=== PATIENT | female | born 1945 | race Caucasian/White ===

== ENCOUNTER 2017-12-17 01:30 | Outpatient (CLI) | payer MEDICARE, SELFPAY ==
--- NOTE | 2017-12-17 10:50 | DI.REPORT_ITS ---
SYMPTOMS/DIAGNOSIS: SCREENING, Z12.31 MAMMOGRAMS: Mammograms were interpreted according to the usual protocol including computer analysis with CAD system, tomosynthesis and C view imaging. The breast tissue is of moderate radiodensity. There is no evidence of a mass. There are no suspicious calcifications and there has been no significant interval change when compared with prior images. SUMMARY: No evidence of malignancy, category 1. Yearly screening mammography is recommended. Breast density category B. SA ASSESSMENT OF FINDINGS: Negative. Category 1. Patient will receive a letter notifying them of these results. BI-RADS category B. There are scattered areas of fibroglandular density.
== END 2017-12-17 01:31 ==
PROVIDERS: PCP Family Medicine; Visit Provider Family Medicine
DX: Z12.31 Encounter for screening mammogram for malignant neoplasm of breast (principal)
CPT/HCPCS: 77063; 77067

== ENCOUNTER 2018-12-28 00:13 | Outpatient (CLI) | payer MEDICARE, SELFPAY ==
--- NOTE | 2018-12-28 13:16 | DI.MAMMO_ITS ---
SYMPTOM/DIAGNOSIS: SCREENING, Z12.39 MAMMOGRAMS: Mammograms were interpreted according to the usual protocol including computer analysis with CAD system, tomosynthesis and C view imaging. Comparison is made with exams from [id number]. The breasts are composed of fatty density tissue, breast density, category A. No suspicious masses or suspiciious microcalcifications are seen. There has been no significant change. IMPRESSION: Category 1. Negative mammogram. Yearly screening mammography is recommended. [facility] ASSESSMENT OF FINDINGS: Negative. Category 1. Patient will receive a letter notifying them of these results. BI-RAD category A. The breasts are almost entirely fatty.
== END 2018-12-28 00:33 ==
PROVIDERS: PCP Family Medicine; Visit Provider Family Medicine
DX: Z12.31 Encounter for screening mammogram for malignant neoplasm of breast (principal)
CPT/HCPCS: 77063; 77067

== ENCOUNTER 2019-09-08 08:35 | Emergency (ER) | payer MEDICARE, SELFPAY ==
[2019-09-08] VITALS (14 sets, daily range): BP systolic 132–145; BP diastolic 49–75; PULSE 55–67; RESP 10–18; TEMP 36.3; O2SAT 96–100
--- NOTE | 2019-09-08 08:45 | DI.CT_ITS ---
EXAM: CT HEAD WO CLINICAL HISTORY: dizzy, r/o bleed/stroke. TECHNIQUE: Imaging Protocol: Axial computed tomography images with coronal and sagittal reformatted images were created and reviewed COMPARISON: No exams were available for comparison FINDINGS: Ventricles and Extra axial spaces: Normal in size and morphology for the patient's age. Hemorrhage: None. Cerebral parenchyma: There are areas of decreased attenuation in the white matter most consistent wit h small vessel ischemic disease. No evidence of an acute territorial infarct. Midline shift: None. Brainstem/Cerebellum: Normal. Calvarium: Normal. Visualized Paranasal sinuses/Mastoids: Clear. Soft Tissues: Unremarkable. IMPRESSION: No acute intracranial process. These findings were discussed with the emergency department on the date of the examination. RADIATION DOSE DELIVERED: 615.62mGy.cm Total DLP DATA REPOSITORY: All CT scans at this facility are submitted to the National Radiology Data Registry (NRDR) Dose Index Registry (DIR) with the [employer] (ACR). RADIATION OPTIMIZATION: All CT scans at this facility use at least one of these dose optimization te chniques: automated exposure control; mA and/or kV adjustment per patient size (includes targeted exa ms where dose is matched to clinical indication); or iterative reconstruction.
[2019-09-08] MEDS: Ondansetron O.D.T. 4 MG TABEF (08:54)
[2019-09-08] MEDS: Meclizine 25 MG TAB (08:54)
[2019-09-08] MEDS: Normal Saline 1,000 ML 1000 ML IV (08:54)
--- NOTE | 2019-09-08 09:01 | ED.GENADUL_ITS ---
Discharge Plan Disposition Patient Disposition: HOME Condition: Good Discharge Details Chief Complaint: Dizzy/Sync Clinical Impression: Peripheral vertigo Primary Care Provider: Celia Morin ED Provider: Cristian Nuno Home Meds and New Rx's Prescriptions: New ondansetron HCl [Zofran] 4 mg tablet 4 mg PO Q8H Qty: 8 RF: 0 meclizine 25 mg tablet 25 mg PO TID Qty: 8 RF: 0 Continued rmuzhhys-djtm-jgx5-C-fátima-bosw 1 EACH tablet 1 ea PO DAILY RF: 0 naproxen sodium [Aleve] 220 MG capsule 220 mg PO DAILY RF: 0 Discharge Instructions Instructions: Benign Paroxysmal Positional Vertigo (ED) Additional Instructions: At this time you have what is called peripheral vertigo. Please make sure you are drinking plenty of non-caffeinated beverages, staying well-hydrated, and take the meclizine and Zofran as needed. The meclizine is for dizziness, and the Zofran is for nausea. Your symptoms will likely improve over the next 48 to 72 hours, however if they worsen please make sure to return. If you notice any worsening of your symptoms, or any new symptoms such as vomiting, diarrhea, fever, chills, shortness of breath, chest pain, numbness, weakness, or fainting , please return immediately to the emergency department for reevaluation. Please follow up with your primary care provider as soon as possible for reassessment and reevaluation. As always, it was a pleasure participating in your medical care today. Referrals: Celia Morin [place], [place] [Primary Care Provider] - Medical Decision Making 74-year-old female with past medical history of hysterectomy, no other significant past medical history presents today for evaluation of sudden onset dizziness. Patient states that at 2 AM she woke up, when she got out of bed she noticed that the room was spinning, had a hard time physically orienting herself due to the dizziness. She denies any associated ear ringing, vision changes, chest pain, shortness of breath, falls, trauma, numbness tingling or focal wea kness. Because of the dizziness she has been notably nauseous all night and all morning, multiple episodes of mild vomiting. She denies hematemesis. No history of stroke, PE, or AK. She denies any chest pain, chest tightness, chest heaviness or shortness of breath. She denies having symptoms like this in the past. No other complaints at this time. Physical exam demonstrates unilateral left-sided horizontal fatigable nystagmus, test of skew is only positive for horizontal correction but no vertical correction. Head impulse test is positive on the left. Signs and symptoms appear clinically consistent with peripheral vertigo. Inconsistent with a central event. Because of the patient's age though we will get a CT scan of the head, EKG, rehydrate, give Zofran and meclizine monitor closely and reassess. I suspect if her symptoms resolved with medication and as her symptoms are clinically consistent with a peripheral etiology she can likely be discharged home she feels better. 10:[address] scan has returned, and per Dr. Johnson negative for acute process stroke or bleed. EKG and laboratory work-up are all unremarkable. Patient is feeling much better. Bethel-Hallpike was positive for the left, Parmjit maneuver was performed and did result in some improvement, meclizine certainly helped her symptoms as well. She is able to ambulate well, is feeling good and ready to go home. Patient will be discharged with meclizine and Zofran as needed. She is tolerating p.o. well. With her improvement, and negative work-up for signs and symptoms are clinically consistent with peripheral vertigo. Patient will be discharged. I did call her and discussed the case with him. I have extensively reviewed the treatment plan and discharge instructions with the patient and their family. I have addressed all patient concerns at this time. The patient and family was made aware of what symptoms to monitor for that would warrant a return to the emergency department. Discussed the plan with the patient and family, they demonstrate verbal understanding and agreement with our assessment and plan at this time. EKG 8: 48 Rate 58, sinus bradycardia, intervals normal, no significant ST elevations or depressions, there is an inverted T wave in V1, no evidence of STEMI. FINDINGS: Ventricles and Extra axial spaces: Normal in size and morphology for the patient's age. Hemorrhage: None. Cerebral parenchyma: There are areas of decreased attenuation in the white matter most consistent with small vessel ischemic disease. No evidence of an acute territorial infarct. Midline shift: None. Brainstem/Cerebellum: Normal. Calvarium: Normal. Visualized Paranasal sinuses/Mastoids: Clear. Soft Tissues: Unremarkable. IMPRESSION: No acute intracranial process. These findings were discussed with the emergency department on the date of the examination. HPI General Date/Time Provider Initiated Documentation: 09/08/19 08:36 . HPI Narrative: 74-year-old female with past medical history of hysterectomy, no other significant past medical history presents today for evaluation of sudden onset dizziness. Patient states that at 2 AM she woke up, when she got out of bed she noticed that the room was spinning, had a hard time physically orienting herself due to the dizziness. She denies any associated ear ringing, vision changes, chest pain, shortness of breath, falls, trauma, numbness tingling or focal weakness. Because of the dizziness she has been notably nauseous all night and all morning, multiple episodes of mild vomiting. She denies hematemesis. No history of stroke, PE, or AK. She denies any chest pain, chest tightness, chest heaviness or shortness of breath. She denies having symptoms like this in the past. No other complaints at this time. Related Data Home Medications Medication Instructions Recorded Confirmed dzoetdgm-tpti-bwp7-C-fátima-bosw 1 ea PO DAILY 03/15/13 09/08/19 naproxen sodium [Aleve] 220 mg PO DAILY 09/05/14 09/08/19 meclizine 25 mg PO TID #8 tab 09/08/19 ondansetron HCl [Zofran] 4 mg PO Q8H #8 tab 09/08/19 Previous Rx's Medication Instructions Recorded meclizine 25 mg PO TID #8 tab 09/08/19 ondansetron HCl [Zofran] 4 mg PO Q8H #8 tab 09/08/19 Allergies Allergy/AdvReac Type Severity Reaction Status Date / Time Sulfa (Sulfonamide Allergy Unverified 09/08/19 08:55 Antibiotics) General Stated Complaint: Dizzy/Sync IKE: 3 Review of Systems All systems reviewed & are unremarkable except as noted in HPI and below PFSH Surgical History (Updated 02/03/18 @ 14:34 by [employer] [place]) Abdominal hysterectomy (~1994) Gr II uterine Ca - Dr Willson Arthroplasty of knee (~1999) Cholecystectomy (~2009) Oophrectomy, Both with hyst Family History (Updated 12/08/18 @ 14:13 by Isael Robles) Mother , 88 Heart disease Stroke Father , 78 Lung cancer Sister , 73 Bladder cancer Brother Diabetes Maternal Grandfather No problems noted. Paternal Grandfather No problems noted. Maternal Grandmother No problems noted. Paternal Grandmother No problems noted. Son No problems noted. Son No problems noted. Social History (Updated 12/08/18 @ 14:11 by Isael Robles) Smoking/Tobacco Use Status: Never Alcohol Intake: never Drug use: Never Substance use type: does not use Caregiver/Support person: No Household members: spouse Housing: house Communication Needs: None Do you need help understanding health information?: Rarely Pets and animals: No Sexually active: No Current gender identity: decline to answer What is your relationship status?: How often do you talk on the phone with friends or family?: decline to answer How often do you get together with friends or relatives?: decline to answer How often do you attend denominational or yazidi services?: decline to answer Do you belong to any clubs or organized social groups?: decline to answer Panel score (0-1 are the most socially isolated patients): 1 What type of physical activity do you participate in: walking Duration: 45-60 minutes/day Frequency: daily Sanna/Hinduism: Spiritism Special sanna needs: No Seatbelt use: always Helmet use: No Drive intox or ride w/intox caterpillar driver: No Do you feel safe at home: Yes Do you feel safe in your relationship?: Yes Exam Narrative Exam Narrative: 1.Const: Well-nourished, Well-developed, appearing stated age 2.Eyes: PERRL, no conjunctival injection, and symmetrical lids. Please see neuro. 3.ENT: Atraumatic external nose and ears. Notably dry MM. Neck: Symmetric, trac hea midline, No thyromegaly. 4.CVS: +S1/S2, No murmurs or gallops. Peripheral pulses 2+ and equal in all extremities. Brisk capillary refill in all extremities. 5.RESP: Unlabored respiratory effort. Clear to auscultation bilaterally. No wheezes rales or rhonchi 6.GI: Soft, Nontender/Nondistended, No hepatosplenomegaly. No guarding or rebound. No pain at McBurney's point, negative Grant sign 7.MSK: Normocephalic/Atraumatic, Extremities w/o deformity or ttp No cyanosis or clubbing, Normal movement of all extremities 8.Skin: Warm, Dry. No rashes or lesions. 9.Neuro: health and physical education teacher II-XII grossly intact. Sensation grossly intact, no focal neurologic deficits. All 6 cardinal planes of vision are fully intact. No evidence of rotatory or vertical nystagmus, patient does have notable left-sided unidirectional fatigable horizontal nystagmus. The patient demonstrated a normal bptlon-dlpj-wrxjhb, good dexterity. There was no evidence of dysdiadochokinesia. Patient was able to ambulate without difficulty. There was no wide-based gait. Romberg testing was normal. Bcge-na-ulkc testing was normal. Sensation was intact bilaterally as well as muscle strength bilaterally for all extremities. Patient was able to verbalize butter cup with no slurring, or miss pronunciation. Cerebellar function testing is normal. The patient demonstrates a normal hints exam with no findings concerning for a central event. Head impulse test is notably positive with left-sided movement. Normal test of skew however she does have mild horizontal correction but no vertical correction. No suggestion of a central cerebellar event. 10.Psych: (AAO) x3. Appropriate mood and affect Course Vital Signs Vital signs: Vital Signs Temperature 36.3 C L 09/08/19 08:42 Pulse 66 09/08/19 08:42 Respiratory Rate 16 09/08/19 08:42 Blood Pressure 136/66 09/08/19 08:42 Pulse Oximetry 97 09/08/19 08:42 Temperature 36.3 C L 09/08/19 08:42 Temperature Source Tympanic 09/08/19 08:42 Pulse 66 09/08/19 08:42 Respiratory Rate 16 09/08/19 08:42 Respiratory Effort Non-Labored 09/08/19 08:54 Blood Pressure 136/66 09/08/19 08:42 Blood Pressure Position Sitting 09/08/19 08:42 Pulse Oximetry 97 09/08/19 08:42 Oxygen Delivery Method Room Air 09/08/19 08:42 Oxygen Flow Rate 0 09/08/19 08:42 Pain Level 0 09/08/19 08:42
[2019-09-08 09:13] LABS: Abs Immature Grans 0.01 k/cumm (0.0-0.09); Absolute Basophil Count 0.01 k/cumm (0.0-0.2); Absolute Eosinophil Count 0.04 k/cumm (0.0-0.7); Absolute Monocyte Count 0.31 k/cumm (0.11-0.7); Absolute Neutrophil Count 4.04 k/cumm (1.2-6.7); Basophils % 0.2; Eosinophils % 0.7; HCT 41.7 % (36.0-46.0); Immature Grans % 0.2 %; Lymphocytes % 18.5; Mean Corp. HGB Concentration 33.6 g/dL (32.0-36.0); Mean Corpuscular Hemoglobin 30.8 pg (27.0-33.0); Mean Corpuscular Volume 91.6 fL (80-95); Mean Platelet Volume 10.5 fL (8.0-11.0); Monocytes % 5.7; Neutrophils % 74.7; Platelet Count 200 x1000/uL (130-400); RBC 4.55 m/cumm (4.00-5.20); RBC Distribution Width 12.8 % (11.7-14.6); White Blood Cell Count 5.41 k/cumm (4.4-10.8)
[2019-09-08 09:25] LABS: PTT Activated 22.5 sec (21.0-31.4); Prothrombin Time 9.9 sec (9.3-11.0)
[2019-09-08 09:33] LABS: ALT 25 U/L (14-59); AST 17 U/L (15-37); Albumin 3.8 g/dL (3.4-5.0); Alkaline Phosphatase 92 U/L (46-116); Anion Gap 6.5 mmol/L (3-11); BUN 18 mg/dL (7-18); Bilirubin, Total 0.7 mg/dL (0.2-1.0); CO2 28.5 mmol/L (21.0-32.0); CREATININE 1.09 mg/dL (0.55-1.02); Calcium 9.3 mg/dL (8.5-10.1); Chloride 105 mmol/L (98-107); Estimated GFR 48.93 (mL/min/1.73m2); Glucose 108 mg/dL (74-106); Lipase 66 U/L (73-393); Potassium 4.1 mmol/L (3.5-5.1); Sodium 140 mmol/L (136-145); Total Protein 7.4 g/dL (6.4-8.2); Troponin I < 0.05 ng/Ml (<0.06)
[2019-09-08] MEDS: Ondansetron O.D.T. 4 MG TABEF, 3 TABS/BTL PO (11:11)
[2019-09-08] MEDS: Meclizine 25 MG TAB PO (11:11)
== END 2019-09-08 10:55 | disposition home or self-care (01) ==
PROVIDERS: Emergency Provider Student in an Organized Health Care Education/Training Program; PCP Family Medicine
DX: H81.392 Other peripheral vertigo, left ear (principal); R11.2 Nausea with vomiting, unspecified
CPT/HCPCS: 36415; 80053; 83690; 93005; 96360; 96361; 99285; 70450; 84484; 85025; 85610; 85730; 93010; 99284

== ENCOUNTER 2020-01-03 00:39 | Outpatient (CLI) | payer MEDICARE, SELFPAY ==
--- NOTE | 2020-01-03 13:15 | DI.MAMMO_ITS ---
EXAM: MG MAMMO SCREENING CLINICAL HISTORY: screening,Z12.39 TECHNIQUE: Mammograms were interpreted according to the usual protocol including computer analysis w [employer] CAD system, tomosynthesis and C-view imaging. COMPARISON: FINDINGS: The breasts are of moderate density with fairly symmetrical distribution of fibroglandular tissue. N o dominant mass or clumped microcalcification is identified in either breast. The current examinatio n is compared with previous examinations including December 2018 and there has been no gross interva l change in appearance comparison with previous studies. IMPRESSION: No specific evidence of malignancy at this time. Routine screening examinations are suggested at yea rly intervals according to the ACS ACR guidelines. BI-RADS Category 1 - Negative Breast Density - Category B - Scattered areas of fibroglandular density
== END 2020-01-03 00:59 ==
PROVIDERS: PCP Family Medicine; Visit Provider Family Medicine
DX: Z12.31 Encounter for screening mammogram for malignant neoplasm of breast (principal)
CPT/HCPCS: 77063; 77067

== ENCOUNTER 2021-04-01 14:10 | Outpatient (CLI) | payer MEDICARE, SELFPAY ==
--- NOTE | 2021-04-01 13:45 | DI.RAD_ITS ---
Exam(s) XR KNEE RT 3V AP,LAT,DUSTIN EXAM: XR KNEE RT 3V AP,LAT,DUSTIN CLINICAL HISTORY: eval R knee pain/OA. TECHNIQUE: 2D digital imaging was performed. COMPARISON: CR RIGHT KNEE 3 VIEWS from 12/06/2012 FINDINGS: Again noted is cdjt-cr-mnlm narrowing of the lateral compartment of the right knee. Also severe adva nced degenerative changes in the patellofemoral compartment which have further progressed. Relative preservation of height of the medial compartment noted. There is an element of valgus deformity evid ent. IMPRESSION: DATA REPOSITORY: RADIATION DOSE DELIVERED:
== END 2021-04-01 14:11 | disposition home or self-care (01) ==
LOC: DIORS 14:11
PROVIDERS: PCP Family Medicine; Referring Provider Family Medicine; Visit Provider Student in an Organized Health Care Education/Training Program
DX: M17.11 Unilateral primary osteoarthritis, right knee (principal)
CPT/HCPCS: 20610; 73562; 99213; J1040

== ENCOUNTER 2021-07-08 15:19 | Outpatient (CLI) | payer MEDICARE, SELFPAY ==
--- NOTE | 2021-07-08 13:45 | DI.RAD_ITS ---
Exam(s) XR STANDING ALIGNMENT EXAM: XR STANDING ALIGNMENT CLINICAL HISTORY: TKR planning. TECHNIQUE: 2D digital imaging was performed. COMPARISON: CR XR KNEE RT 3V AP,LAT,DUSTIN from 04/01/2021 FINDINGS: Standing study reveals significant pelvic tilting towards the right. There is right-sided valgus def ormity related to hwbt-ry-ivkt narrowing of the lateral compartment of the right knee. Medial compar tment the right knee exhibits normal height. There is only minimal narrowing of the medial compartme nt of the opposite-left knee. There is mild relatively symmetrical narrowing of the hip joints. The superior aspect of the left fe moral head is approximately 2 cm above the superior aspect of the right hip joint. Similar findings at the level of the knees. Sacroiliac joints appear unremarkable. Ankles unremarkable. No signific ant osseous lesions. IMPRESSION: Advanced narrowing of the lateral compartment of the right knee. Valgus deformity. Pelvic tilting as described above DATA REPOSITORY: RADIATION DOSE DELIVERED:
== END 2021-07-08 15:20 | disposition home or self-care (01) ==
LOC: DIORS 15:20
PROVIDERS: PCP Family Medicine; Referring Provider Family Medicine; Visit Provider Student in an Organized Health Care Education/Training Program
DX: M21.061 Valgus deformity, not elsewhere classified, right knee (principal); M17.11 Unilateral primary osteoarthritis, right knee; I49.8 Other specified cardiac arrhythmias
CPT/HCPCS: 77073

== ENCOUNTER 2021-07-29 02:08 | Outpatient (CLI) | payer MEDICARE, SELFPAY | END 2021-07-29 02:09 | disposition home or self-care (01) | LOC: LBO 02:08 | PROVIDERS: PCP Family Medicine; Visit Provider Student in an Organized Health Care Education/Training Program ==

== ENCOUNTER 2021-07-29 02:39 | Outpatient (CLI) | payer MEDICARE, SELFPAY ==
[2021-07-29 09:40] LABS: HCT 41.1 % (36.0-46.0); HGB 13.4 g/dL (11.2-15.7); MCH 30.8 pg (27.0-33.0); MCHC 32.6 % (32.0-36.0); MCV 94.5 fL (80-95); MPV 10.1 fL (8.0-11.0); Platelet Count 187 10^3/uL (130-400); RBC 4.35 10^6/uL (3.93-5.22); RDW 12.2 % (11.7-14.6); RDW-SD 42.6 fL; WBC 4.96 10^3/uL (4.4-10.8)
[2021-07-29 10:27] LABS: Anion Gap 9.8 mmol/L (3-11); BUN 24 mg/dL (7-18); CO2 27.2 mmol/L (21.0-32.0); Calcium 9.5 mg/dL (8.5-10.1); Chloride 106 mmol/L (98-107); Estimated GFR 53.76 (mL/min/1.73m2); Glucose 74 mg/dL (74-106); Potassium 4.3 mmol/L (3.5-5.1); Sodium 143 mmol/L (136-145)
[2021-07-29 12:09] LABS: Source Nasal/Nares
[2021-07-29 14:45] LABS: COVID-19 PCR Negative (Negative)
== END 2021-07-29 02:40 | disposition home or self-care (01) ==
LOC: LBO 02:39
PROVIDERS: PCP Family Medicine; Visit Provider Student in an Organized Health Care Education/Training Program
DX: M25.561 Pain in right knee (principal); M17.11 Unilateral primary osteoarthritis, right knee; Z20.822 Contact with and (suspected) exposure to COVID-19; Z01.818 Encounter for other preprocedural examination; Z01.812 Encounter for preprocedural laboratory examination
CPT/HCPCS: 36415; 80048; 85027; 87635; U0005; 93005

== ENCOUNTER 2021-07-29 03:00 | Outpatient (CLI) | payer MEDICARE, SELFPAY ==
--- NOTE | 2021-07-29 10:30 | RT.EKG_ITS ---
APPROVED REPORT Exam: Resting ECG Reason for Exam: Regularly irregular rhythm noted. DOS 07/30 Patient Location: O HR:76 bpm ECG Measurements Heart Rate 76 AXIS OH 150 P 29 QRSd 73 QRS -38 QT 371 T 42 QTc 417 Conclusion Sinus rhythm...normal P axis, V-rate 60- 99 Ventricular premature complex...V complex w/ short R-R interval Left axis
== END 2021-07-29 03:01 | disposition home or self-care (01) ==
LOC: RT 03:00
PROVIDERS: PCP Family Medicine; Visit Provider Student in an Organized Health Care Education/Training Program
DX: I49.9 Cardiac arrhythmia, unspecified (principal); Z01.818 Encounter for other preprocedural examination
CPT/HCPCS: 93005; 93010

== ENCOUNTER 2021-07-30 07:23 | Day surgery (SDC) | payer MEDICARE, SELFPAY ==
[2021-07-30] VITALS (13 sets, daily range): BP systolic 104–138; BP diastolic 60–93; PULSE 61–79; RESP 10–18; TEMP 36.3–37.2; TEMPC 36.3; O2SAT 95–976; BMI 30.3
--- NOTE | 2021-07-30 07:45 | ANES.PREOP_ITS ---
General Info Date of Service Date Performed: 07/30/21 Height: 5 ft 6 in Weight: 85.275 kg Body Mass Index (BMI): 30.3 Surgical Procedure: Operation Date: 07/30/21 09:55 Proposed Procedure Side Surgeon p Knee Total Arthroplasty OrthoAlign Cemented PS Right Stephane Camara MD Meds Allergies and Home Medications Allergies Allergy/AdvReac Type Severity Reaction Status Date / Time Sulfa (Sulfonamide Allergy Unknown Unknown Unverified 07/30/21 07:34 Antibiotics) Home Medication Medication Instructions Recorded glucosamine 750 fu-iwoxmceqqc-bqc 1 ea PO DAILY 03/15/13 no.1 625 mg-C 30 ik-yzcm-jrql tablet naproxen sodium 220 mg capsule 220 mg PO DAILY 09/05/14 (Aleve) Current Visit Medications: Current Medications Generic Name Dose Route Start Last Admin Trade Name Freq PRN Reason Stop Dose Admin Acetaminophen 1,000 mg 07/30/21 06:00 Acetaminophen 500 Mg Tab PO 07/30/21 23:59 PREOP ALEAJNDRINA Acetaminophen 1,000 mg 07/30/21 08:30 Acetaminophen 500 Mg Tab PO TID ALEJANDRINA Aspirin 81 mg 07/30/21 20:00 Aspirin E.C. 81 Mg Tabec PO BID ALEJANDRINA Celecoxib 400 mg 07/30/21 06:00 Celecoxib 200 Mg Cap PO 07/30/21 23:59 PREOP ALEJANDRINA Celecoxib 200 mg 07/30/21 08:30 Celecoxib 200 Mg Cap PO BID ALEJANDRINA Docusate Sodium 100 mg 07/30/21 07:26 Docusate Sodium 100 Mg Cap PO BID PRN PRN Constipation Gabapentin 300 mg 07/30/21 06:00 Gabapentin 300 Mg Cap PO 07/30/21 18:00 PREOP ALEJANDRINA Tranexamic Acid 1,000 mg/ 60 mls @ 360 mls/hr 07/30/21 06:00 Sodium Chloride IVPB 07/30/21 18:00 PREOP ALEJANDRINA Ringer's Solution 1,000 mls @ 80 mls/hr 07/30/21 06:00 IV 08/28/21 23:59 INFUSION ALEJANDRINA Cefazolin Sodium/Dextrose 2 gm in 50 mls @ 100 mls/hr 07/30/21 06:00 Ancef Duplex IVPB 08/28/21 23:59 PREOP ALEJANDRINA Cefazolin Sodium/Dextrose 1 gm in 50 mls @ 100 mls/hr 07/30/21 08:00 Ancef Duplex IVPB 07/31/21 00:29 Q8H ALEJANDRINA IV Miscellaneous Supplies 1 each 07/30/21 06:00 Iv Access IV 08/28/21 23:59 DIRECTED ALEJANDRINA Ondansetron HCl 4 mg 07/30/21 07:26 Ondansetron 4 Mg/2 Ml Vial IVP Q6H PRN PRN Nausea Oxycodone HCl 0 mg 07/30/21 07:26 Oxycodone 5 Mg Tab PO Q3H PRN PRN Pain Pantoprazole Sodium 40 mg 07/30/21 07:30 Pantoprazole 40 Mg Tabcr PO DAILY@0730 ALEJANDRINA Polyethylene Glycol 17 gm 07/30/21 07:26 Polyethylene Glycol 3350 17 Gm Packet PO BID PRN PRN Constipation Sodium Chloride 0 ml 07/30/21 06:00 Normal Saline Flush 10 Ml Syr IV 08/28/21 23:59 PRN PRN Sodium Chloride 0 ml 07/30/21 06:00 Normal Saline 10 Ml Vial IJ 08/28/21 23:59 DIRECTED PRN Sterile Water 0 ml 07/30/21 06:00 Water,Injection,Sterile 10 Ml Vial IJ 08/28/21 23:59 DIRECTED PRN PFSH Active Problems Active Problems: Problem Status Onset Code Varicose veins of lower extremity I83.90 Old anterior cruciate ligament disruption 09/11/09 M23.50 History of cancer of uterus 09/05/14 Z85.42 Laceration Fall W19.XXXA Osteoarthritis of right knee M17.11 Medical History Medical History Acne (03/03/11) Acute dermatitis Cholelithiasis without obstruction (09/11/09) Contact dermatitis (09/11/09) Pain in wrist (09/11/09) Personal history of malignant neoplasm of other parts of uterus (01/20/12) Surgical History Surgical History Abdominal hysterectomy (~1994) Gr II uterine Ca - Dr Willson Arthroplasty of knee (~1999) Cholecystectomy (~2009) Hx of appendectomy Oophrectomy, Both with hyst Tobacco Smoking/Tobacco Use Status: Never Passive smoking exposure: Yes Alcohol Alcohol Intake: never Substance Use Substance use: Never Substance use type: does not use Vital Signs and Lab Results Lab Results Blood Type / Crossmatch: No Data to Display Complete Blood Count: White Blood Count 4.96 10^3/uL (4.4-10.8) 07/29/21 09:30 07/29/21 Red Blood Count 4.35 10^6/uL (3.93-5.22) 07/29/21 09:30 07/29/21 Hemoglobin 13.4 g/dL (11.2-15.7) 07/29/21 09:07/29/21 Hematocrit 41.1 % (36.0-46.0) 07/29/21 09:30 07/29/21 Platelet Count 187 10^3/uL (130-400) 07/29/21 09:30 07/29/21 Complete Metabolic Panel: Sodium Level 143 mmol/L (136-145) 07/29/21 09:30 07/29/21 Potassium Level 4.3 mmol/L (3.5-5.1) 07/29/21 09:30 07/29/21 Chloride Level 106 mmol/L (98-107) 07/29/21 09:30 07/29/21 Carbon Dioxide Level 27.2 mmol/L (21.0-32.0) 07/29/21 09:30 07/29/21 Blood Urea Nitrogen 24 mg/dL (7-18) H 07/29/21 09:30 07/29/21 Creatinine 1.0 mg/dL (0.55-1.02) 07/29/21 09:30 07/29/21 Estimated GFR/1.73 m2 53.76 (mL/min/1.73m2) 07/29/21 09:30 07/29/21 Calcium Level 9.5 mg/dL (8.5-10.1) 07/29/21 09:30 07/29/21 Glucose Level 74 mg/dL (74-106) 07/29/21 09:30 07/29/21 Liver Function Panel: No Data to Display Coagulation Panel: No Data to Display Cardiac Panel: No Data to Display Arterial Blood Gas: No Data to Display Venous Blood Gas: No Data to Display Pancreas Panel: No Data to Display Thyroid Panel: No Data to Display Infectious Disease: Coronavirus (COVID-19)(PCR) Negative (Negative) 07/29/21 09:39 07/29/21 Coronavirus 2019 Source Nasal/Nares 07/29/21 09:39 07/29/21 Blood Cultures: No Data to Display Toxicology Panel: No Data to Display Imaging and Studies Imaging and Studies Study information below may be from another EMR and interpreted by another provider. Please see original notes in EMR for more complete details. EKG Summary: PATIENT NAME: Abigail Lowe #: [id number] ORDERING PROVIDER: Stephane Camara M.D. PRIMARY CARE PROVIDER:SHAWANDA MICHELLE MD, [place] DATE/TIME OF SERVICE: 07/29/21949 : 1944ERFORMING LOCATION: RT APPROVED REPORT Exam: Resting ECG Reason for Exam: Regularly irregular rhythm noted. DOS 07/30 Patient Location: O HR:76 bpm ECG Measurements Heart Rate 76 AXIS TX 150 P 29 QRSd 73 QRS -38 QT 371 T42 QTc 417 Conclusion Sinus rhythm...normal P axis, V-rate 60- 99 Ventricular premature complex...V complex w/ short R-R interval Left axis <Electronically signed by SHARON KELLER MD in OV> E-Sign Date: 07/29/21 E-Sign Time: 09 Anesthesia Assessment and Plan Anesthesia History Personal History: PONV Family History: No Family History of Anesthesia Complications Exercise Tolerance Exercise Tolerance: Metabolic Equivalents>4 Pertinent Negatives Pertinent Negatives: No Symptoms of GERD, No Major Cardiovascular Symptoms or Complaints, No Major Pulmonary Symptoms or Complaints and No History of CVA/TIA Cardiac & Pulmonary Exam Cardiac Exam: Normal S1/S2 Heart Sounds Pulmonary Exam: Clear Bilateral Breath Sounds Implantable Cardiac Device Does patient have a Pacemaker or an ICD?: No Airway Exam Known Difficult Airway: No Mallampati Class: 1 Mouth Opening: Normal (> 3cm) Thyromental Distance: Greater than 3 cm Neck Range of Motion: Full ROM Neck Circumference: Thick Teeth Condition: Normal Dentition ASA Classification ASA Score: ASA 2 Emergency Case?: No NPO Status NPO Status: NPO Clears >2 hours, Solids >8 hours Anesthesia Plan Resuscitation Status: Full Code Anesthesia Technique: Spinal Anesthesia Airway Planned: Natural Airway Pain Management: Surgeon and patient request nerve block Monitors Used: Standard Monitors
[2021-07-30] MEDS: Celecoxib 200 MG CAP 400 MG PO (08:05)
[2021-07-30] MEDS: Gabapentin 300 MG CAP PO (08:05)
[2021-07-30] MEDS: Acetaminophen 500 MG TAB 1000 MG PO (08:06)
[2021-07-30] MEDS: Lactated Ringers 1,000 ML 80 ML IV (08:27)
[2021-07-30] MEDS: Lactated Ringers 1,000 ML 30 ML IV (08:30)
--- NOTE | 2021-07-30 09:03 | W.ANESNERVE ---
Nerve Block Single Injection Procedure Date and Time Date Performed: 07/30/21 Procedure Start: 09:03 Location Where Procedure Performed Procedure Location: Day Surgery Unit (214) Reason Performed: Postoperative Analgesia Requesting Provider: Stephane Camara Timeout Performed Timeout Performed: Yes Monitoring Used ECG, Blood Pressure and SpO2 Sterility Sterility: Hand Hygiene, Surgical Cap, Surgical Mask, Sterile Gloves, Eye Protection and Chlorhexidine Sedation Given During Procedure Sedation Given (Indicate Dose Given): No Sedation given Patient Mental Status Patient Mental Status: Awake Nerve Block 1st Nerve Block: Laterality: Right Block Type: Adductor Canal Needle / Catheter Used: 100mm SonoPlex II Local Anesthetic Bolus (Indicate Dose Given): Lidocaine used for local infiltration of skin, Injected in 3-5ml increments after negative blood aspiration and Bupivacaine 0.25% Dose:: 15 cc Additives (Indicate Dose Given): None Ultrasound: Sterile probe cover and gel used Ultrasound Image Saved?: Yes Nerve Stimulator: Not Used Paresthesia: None Procedure Tolerated: No Complications and Patient tolerated well Procedure Outcome: Successful Performed By: Rico Brown
[2021-07-30] MEDS: ceFAZolin 2 GM/50 ML BAG IVPB (09:25)
[2021-07-30] MEDS: Bupivacaine 0.25% Pres-Free 30 ML VIAL (10:39)
[2021-07-30] MEDS: Ketorolac 30 MG/ML VIAL (10:41)
[2021-07-30] MEDS: Normal Saline 20 ML VIAL (10:41)
[2021-07-30] MEDS: HYDROmorphone 2 MG/ML VIAL IVP ×2 (11:51→12:10)
--- NOTE | 2021-07-30 12:09 | W.ANESPOSTOP ---
Postoperative Evaluation Date, Time and Location Date Performed: 07/30/21 Time Performed: 12:09 Patient Location: PACU Vital Signs Most Recent Imported Vital Signs: Most Recent Vital Signs Temp Pulse Resp BP Pulse Ox 36.5 C 62 10 L 104/65 95 07/30/21 11:58 07/30/21 11:58 07/30/21 11:58 07/30/21 11:58 07/30/21 11:58 Most Recent Manually Entered Vital Signs: Adult Blood Pressure: 123/62 Heart Rate: 65 Respirations: 10 Oxygen Saturation (%): 97 Temperature (C): 36.3 C Pain Score (0-10 Scale): 5 Pain Score Most Recent Pain Score: Most Recent Pain Score Pain Level 5 07/30/21 11:58 Assessment Mental Status: Awake (Alert & Oriented to Patient Baseline) Airway and Respiratory Function: Patent airway with normal (patient baseline) respiratory exam Cardiovascular Function: Hemodynamically Stable Hydration Status: Adequately Hydrated Nausea & Vomiting: No Nausea or Vomiting Pain: Pain is tolerable per patient Peripheral Nerve Block: Regional nerve block not resolved at time of post operative discharge
--- NOTE | 2021-07-30 13:29 | W.PM.DSUDISC ---
Discharge Plan Disposition Patient Disposition: HOME Condition: Good Discharge Details Reason For Visit: R TKA Attending Provider: Stephane Camara Primary Care Provider: Celia Morin Home Meds and New Rx's Prescriptions: New celecoxib 200 mg capsule 200 mg PO BID Qty: 60 0RF aspirin 81 mg tablet,delayed release (DR/EC) 81 mg PO BID Qty: 60 0RF acetaminophen 500 mg tablet 1,000 mg PO TID Qty: 90 3RF gabapentin 300 mg capsule 300 mg PO QHS Qty: 14 0RF oxycodone 5 mg tablet 5 mg PO Q4H MDD 6 tabs PRN (Reason: pain) Qty: 20 0RF pantoprazole 40 mg tablet,delayed release (DR/EC) 40 mg PO DAILY Qty: 30 0RF Continued qlqmfviw-[id number]-[id number]-C-fátima-bosw 1 EACH tablet 1 ea PO DAILY 0RF Discontinued naproxen sodium [Aleve] 220 MG capsule 220 mg PO DAILY 0RF Discharge Instructions Additional Instructions: Total Knee Discharge Instructions Activity: The most important activity is to walk. You should try to take short walks a few times a day. It is important that when resting you work on keeping the knee straight. Avoid putting a pillow behind the knee as this will encourage flexion. Work on range of motion exercises as provided by Physical Therapy. If you have the [employer] bike coming, this will be your primary tool for exercise after the knee replacement. You should use it and follow the directions for the knee. Utilize the other exercises sparingly based on your symptoms. - Start outpatient physical therapy within 2 weeks. - You should wear the VIJAY hose on both legs for 2 weeks. You may remove these at night. You may also use any compression sock in place of the VIJAY hose. - Utilize [employer] to review exercises, see videos on exercises and obtain basic information pertaining to your surgery and your recovery. Dressing: Remove the Bradford wrap by 2 days after your surgery and put on the VIJAY stocking given to you from the hospital. Keep the surgical dressing (underneath the BRADFORD wrap) in place for at least one week. After the first week it may be removed and replaced with light gauze and tape or nothing. The wound and dressing may get wet after 3 days but avoid soaking the dressing or otherwise it will need to be changed. Many people prefer covering the dressing with cling wrap (saran wrap) to minimize it from getting soaked. If it gets wet, just pat dry. If it starts to peel off then it will need to be changed. Medications: - You should take Tylenol and anti-inflammatory Celebrex as your primary pain control medications. If the Celebrex is too expensive or not covered, please call the office for another alternative (Advil/Ibuprofen or Naproxen/Aleve) - You have been prescribed a stronger pain medication Oxycodone for breakthrough pain, take as needed as prescribed. - You have also been prescribed a stomach acid reduction agent Pantoprozole to help reduce stomach acid and reflux. - You have been prescribed Gabapentin to take at night for restlessness and nerve pain. - You will be taking Aspirin 81mg twice a day for DVT prevention unless instructed otherwise. - If you have constipation you should take Colace or Miralax (both llwz-[id number]-xcjohdi). It takes most people 3-4 days to have a bowel movement. Follow-up: 2 weeks If you have any acute concerns or questions, please do not hesitate to contact the office at [phone]. You may contact Dr. Camara with any questions after hours through the hospital at [phone] or on his cell phone at [phone]. Stand Alone Forms: Anesthesia Discharge Inst., Lawrence Mazariegos (DSU) Referrals: Stephane Camara MD [ [facility] STAFF PHYSICIAN] - Equipment/Supplies: Walker Activity:: Activity as Tolerated Remove Dressings/Wound Care:: Do Not Remove Shower/Bathe:: 72 hours Diet:: As Tolerated Discharge Orders Discharge Orders: Discharge Order (Routine); Ordered 07/30/21 Ordered By: Stephane Camara DS: Diagnosis Discharge Diagnosis (1) Osteoarthritis of right knee: Status: Acute
--- NOTE | 2021-07-30 14:00 | IN_ITS ---
Date of service: 07/30/21 Time of Service: 14:00 PT Notes Visit Reasons: R TKA Physical Therapy Day Surgery Initial Evaluation Date: 07/30/2021 Referring Doctor: TRA Simon PT Orders: PT CONSULT: Status post Ortho surgery. Precautions: WBAT on right LE with AD. Patient Profile/Admitting Diagnosis: Abigail is a 76-year-old female with degenerative joint disease of the right knee and is status post right total knee arthroplasty on postoperative day 0. PMHX: Medical History?(Updated 04/01/21 @ 22:36 by Stephane Camara MD) Acne (03/03/11) Acute dermatitis Cholelithiasis without obstruction (09/11/09) Contact dermatitis (09/11/09) Pain in wrist (09/11/09) Personal history of malignant neoplasm of other parts of uterus (01/20/12) Surgical History?(Updated 04/01/21 @ 22:36 by Stephane Camara MD) Abdominal hysterectomy (~1994) Gr II uterine Ca - Dr BeechamArthroplasty of knee (~1999) Cholecystectomy (~2009) Oophrectomy, Both with hyst Social History/Home Situation: Lives with in a private room with a ramp to enter. Independent with all aspects of ADLs without an assistive device. Has been a caregiver to her . Equipment Owned/DME: [facility] Subjective: Reports mild pain in the R knee with movement. Abigail indicates that even though she has provided care for her , he is able to provide physical assistance for her when needed. She states that his vision and hearing are impaired. Reports that she has had no falls in the past 12 months. Objective: General Observation: Supine in bed. Bradford wraps to right LE. Cryo/Cuff to right knee. TEDS on left leg. Mental Status: Alert and oriented x 4 Pain: 2-3/10 in the R knee ROM: Right Lower Extremity: Hip flexion WFL. Hip abduction WFL. Knee flexion 10 degrees to 80 degrees. Knee extension -10 degrees Ankle dorsiflexion WFL. Ankle plantarflexion WFL. Left Lower Extremity: Hip flexion WFL. Hip abduction WFL. Knee flexion WFL. Ankle dorsiflexion WFL. Ankle plantarflexion WFL. Strength: Right Lower Extremity: Hip flexors 5/5. Hip abductors 5/5. Knee flexors 3-/5. Knee extensors 3-/5. Ankle dorsiflexors 5/5. Ankle plantarflexors 5/5. Left Lower Extremity:Hip flexors 5/5. Hip abductors 5/5. Knee flexors 5/5. Knee extensors 5/5. Ankle dorsiflexors 5/5. Ankle plantarflexors 5/5. Sensation: Intact as to pain and touch in bilateral lower extremities Bed Mobility/Transfers: Supine to sit standby assist Sit to stand contact-guard assist Stand to sit standby assist Bed to chair contact-guard assist Gait: Tolerated level surface ambulation of 80 feet using front wheeled walker with step through gait pattern. Unable to fully extend knee during mid stance on her right but no buckling noted. No loss of balance. Became nauseous at end of the first half of the walk and requested to sit down. Vomitted a small amount x 1. Deferred further ambulation, patient was wheeled back to room where Nurse Guillaume and PERLA Buchanan took over. After resting about 5 minutes, patient was able to walk a short distance about 8 steps from wheelchair to recliner to rest. Balance: Static Sitting: Normal Dynamic Sitting: Normal Static Standing: Fair Dynamic Standing: Fair Special Tests: Mobility Limitations Standardized Measure [facility] AM-PAC 6 clicks Basic Mobility Inpatient Short Form: Raw Score: 20 CMS Score: 36% deficit Informed Consent/Education: Patient instructed in purpose of PT consult. Education and training on initial set of exercises that can be done at home have been completed with patient. Assessment: Ambulation distance limited by report of nausea and one episode of vomiting inpatient. Patient requires the use of front-wheel ed walker for all mobility ADL performance to maximize independence and reduce fall risk. Patient presents with clinical signs and symptoms consistent with current/admitting diagnoses that have resulted to mobility limitations, gait instability, generalized weakness, and impairment of motor control as demonstrated by the following impairment level findings: 1. Decreased strength to right knee major muscle groups 2. Impaired standing balance 3. Limitation of joint range of motion in right knee Impairments are contributing to the following functional limitations: 1. Inability to safely ambulate without assistive device 2. Increase completion time for mobility ADL performance 3. Increased fall risk Patient is assessed as a 00582 moderate complexity based on the following: History: 76-year-old female with impairment level findings, functional limitations, and past medical history as indicated above Examination: Demonstrable impairment in strength, balance, and mobility level with underlying impairments and functional limitations as documented above Presentation: Evolving Decision Makin moderate complexity Goals: N/A. PT evaluation and 1-2 treatment sessions only for functional mobility training using recommended AD and for HEP instruction. Plan of Care/Treatment Plan: N/A. PT evaluation and 1-2 treatment session only for functional mobility training using recommended AD and for HEP instruction. DISCHARGE RECOMMENDATIONS: [] Home with no services [] [] Home with services [specify] [X] Home with outpatient PT. Home when medically cleared by orthopedic surgeon. Will benefit from outpatient PT services in order to regain independent mobility level without an assistive device at home in the community. [] SNF for continued rehabilitation [] [] Long-Term Care [] [] SNF versus LTC based on ability to participate and progress [] TREATMENT CODE/TIME: 40739 x 15 minutes, 45724 x 27 minutes beginning at 14:00 PM. Thank you for the opportunity to participate in the care of this patient. Lyly Hylton PT, DPT, CLT [facility] [place], [place]
--- NOTE | 2021-07-30 23:55 | W.PM.OP ---
Date of service: 07/30/21 Time of Service: 11:10 Operative Note Operative Note DATE OF PROCEDURE: 07/30/21 PRE-OP DIAGNOSIS: Right Knee Arthritis with Valgus Deformity POST-OP DIAGNOSIS: same PROCEDURE: Right Total Knee Arthroplasty with Intraoperative Navigation SURGEON: Stephane Camara HUMAN MACHINE INTERFACE ENGINEER: Fidel Talavera Refer to Anesthesia Record ESTIMATED BLOOD LOSS: 150 PATHOLOGY: none sent COMPLICATIONS: None Patient was transported to: PACU Patient's condition: stable Implants: 1. Depuy Attune Posterior Stabilized Femoral Component, Size 6 Narrow 2. Depuy Attune Rotating Platform Tibial Component, Size 4 3. Depuy Attune 6x10 RP/PS Poly 4. Depuy Attune Patellar Component, Size 35 Indications: I have seen Abigail in clinic for symptoms of knee arthritis, confirmed with radiographic findings. She has exhausted nonoperative methods and was having significant limitations in daily function and desired better function and less pain. I discussed the technical details of a knee replacement. I explained the risks of the procedure to include, but not limited to, bleeding, infection, pain, stiffness, fracture, damage to nerves and vessels, damage to muscles and tendons, loosening, need for repeat procedure, blood clot and cardiopulmonary demise. Despite these risks, Anna elected to proceed. Findings: There was significant signs of arthritis throughout the knee, mostly lateral. The bone medial was quite soft. Procedure Description: Abigail was greeted in the preoperative holding area where the correct side was identified and marked. The consent was reviewed with the patient and signed. The history and physical was updated. All questions were answered. Preoperative mediacations were administered: Acetaminophen 1000mg, Celebrex 400mg, and Gabapentin 300mg. An adductor canal block was then administered by the anesthesia team in the PACU. She was taken back to the operating room. A spinal anesthestic was then administered. The patient was placed into the supine position on the operating room table. A nonsterile tourniquet was placed high onto the leg but only used for cementing. Posts were placed for positioning during the procedure. All bony prominences were well padded. Prophylactic antibiotics in the form of Cefazolin were administered. 1g of Tranxemic Acid was given intravenously within 30 minutes of incision. The right leg was then prepped with Chloraprep and draped in a standard fashion with impervious stockinette and extremity drape with Iodine impregnated skin protection. A timeout to confirm correct identity, side and site, procedure, allergies, anesthesia, and medical concerns was performed. With the knee in some flexion, a midline incision was made overlying the knee. Full thickness skin flaps were raised once the extensor mechanism was encountered. These were raised medially and laterally. Any bleeding was controlled with electrocautery. Once the extensor mechanism was fully exposed, a medial parapatellar arthrotomy was performed in a flexed position. All bleeding from the arthrotomy and the geniculate arteries was coagulated. A medial subperiosteal peel was performed with electrocautery to the midcoronal plane. The fat pad was removed while keeping the patellar tendon protected. The anterior distal femur synovium was removed for later visualization. The ACL and PCL were resected and the anterior horn of the lateral meniscus was transected. The knee was then flexed with the patella everted. Large osteophytes from the tibia were removed. Large osteophytes from the femur were removed. The bone appeared much osfter on the medial compartment. There was some hypoplasia of the lateral femoral condyle and any remnant cartilage of the medial femoral condyle was removed for appropriate thickness. A single starting pin was then placed 1cm anterior to the PCL insertion and the notch in the direction of the femoral head. The OrthoAlign device was applied over the pin. It was oriented to be in line with the epicondylar axis and the trochlear groove. It was then pinned into place. The navigation computer was then turned on and calibrated. The distal femur cut was set at 0 degrees varus/valgus and 2.5 degrees flexion. The distal femur cutting guide then was positioned for a 9mm cut. The distal femur was cut with an oscillating saw while protecting the soft tissues. The tibia was then addressed. The OrthoAlign device was placed over the tibial tubercle and medial tibia and secured into position. Once again, OrthoAlign was calibrated and then set for a 1 degree valgus cut and 4 degrees of posterior slope. With this locked into position, the cut thickness stylus was used to assess cut thickness. The lateral side, most involved side, was set for a 4mm cut. This was then held in position and pinned into place with 2 additional pins and a cross pin for stability. The medial and lateral collateral ligaments were protected and the cut was performed. With this completed, it was assessed and noted to be of appropriate dimensions. The guide and OrthoAlign was removed. A spacer block was inserted and the knee was brought into extension. The 8mm spacer block provided full extension, without hyperextension and with stability of both the medial and lateral collateral ligaments was assessed. The pins from the femur and the tibia were then removed. The distal femur was then sized. The anterior stylus was placed onto the lateral ridge of the anterior femur. This indicated a size 6 femur. The external rotation of the guide was adjusted to 7 degrees to match the epicondylar axis, perpendicular to Howard?s line. The 4-in-1 cutting guide was the placed. The posterior medial femur cut was evaluated and appeared of good thickness. The spacer block was inserted underneath the cutting guide and stability was confirmed in 90 degrees of flexion. An joe wing was used to confirm appropriate position of the anterior cut to avoid notching. This cutting guide was ensured to be flush on the cut surface and then pinned into place with headed pins. While protecting the soft tissues, quad tendon, and collateral ligaments, the anterior and posterior cuts were performed with a saw. The central two pins were removed and the posterior and anterior chamfers were cut next. The notch-cutting guide was placed. This was pinned to lateralize the femoral component as much as possible while keeping it flush on the cut surface. This was then pinned into position. A reciprocating saw was used to make the notch cut. A rasp smoothed the cut surfaces. A trial posterior stabilized femoral component was then inserted, impacted down to the cut surfaces, and the lug holes were drilled. A provisional trial tibial component was placed and the knee was brought through range of motion. The polyethylene was trialed until there was good flexion and extension with excellent stability to the medial and lateral collaterals. The patella was tracking without thumbs. The tibial cut surface was fully exposed. The medial and lateral menisci were removed. The tibia was then sized as a 4. The tibia had been previously marked during trialing to correspond to the center of the tibial component to help with rotation. The trial was aligned to this fidel, approximately rotated to the medial 1/3rd of the tibial tubercle. The trial was pinned into place. The tibia was prepared with a reamer and a keel punch. The knee was then brought into extension and the patella was measured as 25mm. Using the patellar clamp and cut guide, this was resected to a flat surface with at least 13mm of thickness remaining. The size 35 patella fit the best. This was oriented and then clamped into position. The lugs were drilled. The trial components were removed. The final components, except for the polyethylene were opened on the back table. The periosteal and capsular tissues, especially posteriorly, around the knee were then systematically injected with a periarticular cocktail consisting of 50cc 0.25% Marcaine, 30mg Ketorolac, 20cc of Exparal and 50cc of injectable saline. The tourniquet was then inflated to 275mmHg. The knee was thoroughly irrigated with a pulse lavage and dried. On the back table, with the implants opened, the cement was mixed. 2 batches of medium viscosity cement were prepared with vacuum assistance. After the cement was ready a small amount was placed on to the back side of the tibial component at the keel. A small amount was placed onto the posterior flange of the femur. Cement was manual pressurized and impregnated into the cut surface of the tibia. The tibial component was then inserted into the cut surface and impacted into position. Excess cement was removed and the component was reimpacted. Again, excess cement was removed and our attention was then turned to the femur. The femoral cut surface was once again dried and cement was manually impacted into the cut surface. The femoral component was lined with the lug holes and impacted. Excess cement was removed. It was ensured to be down against the cut surface. The trial polyethylene was then inserted and the leg was brought out into full extension for the duration of the cement curing process, approximately 18min. Cement was lastly manually impacted into the cut surface of the patella and the patellar button was clamped into position and held. During this process attention was turned to the gutters of the knee and for all interfaces for any excess cement. After the cement had finally cured, approximately 18min, the clamp was removed from the patella and the knee was taken through range of motion. A size 10mm polyethylene component provided the best range of motion and stability with less than 2mm gapping with medial and lateral stress and full extension without significant hyperextension. The patella was tracking with a no-thumbs technique. The trial poly was removed and once again the knee was checked for any loose, excess, or errant cement. The poly component was then inserted and impacted into position after cleaning and drying the tibial tray. The capsule was then reapproximated with a No. 1 Vicryl at multiple locations. The capsule was finally closed with a No. 2 Stratafix, barbed suture. The tourniquet was then released and the arthrotomy appeared watertight without significant bleeding. The second dosing of 1g TXA was started. Deep tissues were then reapproximated with 0 Vicryl and 2-0 Monocryl. The skin was closed with a running 3-0 Monocryl in a subcuticular fashion. This was reinforced with skin glue. A Mepilex silver dressing was applied along with a igqj-qy-wgilp MOIRA wrap. A CryoCuff was applied. Abigail was transferred to the hospital bed without difficulty an suffering no apparent complication. She has a good prognosis. Physical therapy will start today and without restrictions, weight-bearing as tolerated. Aspirin 81mg BID will be used for DVT prophylaxis.
== END 2021-07-30 15:53 | disposition home or self-care (01) ==
PROVIDERS: PCP Family Medicine; Visit Provider Student in an Organized Health Care Education/Training Program
PROC: (CPT 27447; principal; 2021-07-30 09:45)
DX: M17.11 Unilateral primary osteoarthritis, right knee (principal)
CPT/HCPCS: 20985; 27447; C1776; 29085; 76942; 97162; 97530; J0690; J1100; J1885; J2001; J2250; J2405

== ENCOUNTER 2021-08-12 15:05 | Outpatient (CLI) | payer MEDICARE, SELFPAY ==
--- NOTE | 2021-08-12 10:15 | DI.RAD_ITS ---
Exam(s) XR STANDING ALIGNMENT XR KNEE RT 1V EXAM: XR STANDING ALIGNMENT and XR knee RT 1 V CLINICAL HISTORY: 1ST POST OP R TKA. TECHNIQUE: 2D digital imaging was performed. Six images were obtained. COMPARISON: CR XR KNEE RT 3V AP,LAT,DUSTIN from 04/01/2021 CR XR STANDING ALIGNMENT from 07/08/2021 FINDINGS: BONES: No acute fracture is present. No bony destructive lesion is seen. Since the prior examination the patient has undergone a right total knee replacement. The orthopedic hardware appears in good po sition. There is soft tissue swelling around the knee. The right lower extremity measures 89.5 cm. The left lower extremity measures 91.4 cm. SOFT TISSUE: Normal. IMPRESSION: Status post right total knee replacement. DATA REPOSITORY: RADIATION DOSE DELIVERED:
== END 2021-08-12 15:06 | disposition home or self-care (01) ==
LOC: DIORS 15:05
PROVIDERS: PCP Family Medicine; Referring Provider Family Medicine; Visit Provider Physician Assistant
DX: Z96.651 Presence of right artificial knee joint (principal)
CPT/HCPCS: 73560; 77073

== ENCOUNTER → 2021-09-09 10:10 | Outpatient (BNVA) | payer MEDICARE, SELFPAY | PROVIDERS: PCP Family Medicine; Referring Provider Family Medicine; Visit Provider Student in an Organized Health Care Education/Training Program | DX: Z96.651 Presence of right artificial knee joint (principal) ==

== ENCOUNTER → 2021-10-24 09:53 | Outpatient (BNVA) | payer MEDICARE, SELFPAY | PROVIDERS: PCP Family Medicine; Referring Provider Family Medicine; Visit Provider Student in an Organized Health Care Education/Training Program | DX: Z47.1 Aftercare following joint replacement surgery (principal); Z96.651 Presence of right artificial knee joint ==

== ENCOUNTER 2022-08-21 10:33 | Outpatient (CLI) | payer MEDICARE, SELFPAY ==
--- NOTE | 2022-08-21 10:00 | DI.RAD_ITS ---
Exam(s) XR KNEE RT 2V AP,LAT EXAM: XR KNEE RT 2V AP,LAT CLINICAL HISTORY: annual f/u R TKA. TECHNIQUE: 2D digital imaging was performed. Images were obtained. AP and lateral views were obtai pam. COMPARISON: CR XR KNEE RT 3V AP,LAT,DUSTIN from 04/01/2021 CR XR KNEE RT 1V from 08/12/2021 FINDINGS: BONES: There are stable post operative changes present. No fracture or dislocation. JOINTS: The orthopedic hardware is in good position. No evidence of hardware loosening. There is a small joint effusion. SOFT TISSUE: Normal. IMPRESSION: Stable postoperative changes. DATA REPOSITORY: RADIATION DOSE DELIVERED:
== END 2022-08-21 10:34 | disposition home or self-care (01) ==
LOC: DIORS 10:34
PROVIDERS: PCP Family Medicine; Referring Provider Family Medicine; Visit Provider Student in an Organized Health Care Education/Training Program
DX: Z96.651 Presence of right artificial knee joint (principal); Z47.1 Aftercare following joint replacement surgery
CPT/HCPCS: 99213; 73560